=== PATIENT | male | born 1990 | race Caucasian/White ===

== ENCOUNTER 2017-08-13 10:58 | Inpatient (IN) | payer OTHER ==
[~2017-08-13] VITALS: Ht 160 cm; Wt 68.0 kg
[2017-08-14] MEDS ORDERED: NEURONTIN300 MG PO (12:10)
[2017-08-14] MEDS ORDERED: PERCOCET 5-3251 EACH PO (12:10)
[2017-08-14] MEDS ORDERED: POLY119PG PO (12:11)
== END 2017-08-14 12:50 | disposition home or self-care (01) | DRG 343 ==
LOC: ER 10:58 → SEC-K 17:03 → O/R 20:03
PROVIDERS: Surgery
PROC: BW21Y0Z Computerized Tomography (CT Scan) of Abdomen and Pelvis using Other Contrast, Unenhanced and Enhanced (ICD-10-PCS; 2017-08-13)
PROC: 0DTJ4ZZ Resection of Appendix, Percutaneous Endoscopic Approach (ICD-10-PCS; principal; 2017-08-13 18:00)
DX: K35.89 Other acute appendicitis (principal)